=== PATIENT | female | born 1985 ===

== ENCOUNTER 2021-11-15 05:13 | Emergency (ER) | payer SELFPAY ==
[2021-11-15 05:22] VITALS: BP 119/64
[2021-11-15] MEDS ORDERED: ACETAMINOPHEN 325 MG TAB PO ONE (07:11)
== END 2021-11-15 09:30 | disposition left against medical advice (07) ==
LOC: ED 05:13
DX: R50.9 Fever, unspecified (principal); Z53.21 Procedure and treatment not carried out due to patient leaving prior to being seen by health care provider

== ENCOUNTER 2021-11-16 06:45 | Emergency (ER) | payer SELFPAY ==
[2021-11-16 07:15] VITALS: BP 108/76
[2021-11-16] MEDS ORDERED: IBUPROFEN 800 MG TAB PO ONE (08:09)
--- NOTE | 2021-11-16 08:18 | Emergency Department Report ---
- General Chief Complaint: Dyspnea/Respdistress Stated Complaint: SHORTNESS OF BREATH/COVID-19+ Source: patient Mode of arrival: Ambulatory Limitations: No Limitations - History of Present Illness Initial Comments: 35-year-old female presents to the ED complaining of generalized body ache, fever ,cough, sore throat x 1 day . Patient states that she took a COVID test yesterday. She states that she was tested positive. Patient was vaping in the ED. Patient denies any prior medication to arrival. Patient denies vaccination to covid vaccine. Patient denies any chest pain or shortness of breath. Roxana ent is alert and oriented x3. No acute distress noted. No ill appearance noted. MD Complaint: fever, cough, nasal congestion, other Onset/Timin -: days(s) Severity: mild Severity scale (0 -10): 4 Quality: aching Improves With: nothing Context: sick contacts Associated Symptoms: denies other symptoms - Related Data Previous Rx's Medication Instructions Recorded Last Taken Type Ibuprofen [Motrin] 800 mg PO Q8HR PRN 15 Days #30 11/16/21 Unknown Rx tablet Allergies Allergy/AdvReac Type Severity Reaction Status Date / Time azithromycin [From Zithromax] Allergy Rash Verified 11/15/21 07:11 ED Review of Systems ROS: Stated complaint: SHORTNESS OF BREATH/COVID-19+ Other details as noted in HPI Constitutional: denies: chills, fever Eyes: denies: eye pain, eye discharge, vision change ENT: denies: ear pain, throat pain Respiratory: cough. denies: shortness of breath, wheezing Cardiovascular: denies: chest pain, palpitations Endocrine: no symptoms reported Gastrointestinal: denies: abdominal pain, nausea, diarrhea Genitourinary: denies: urgency, dysuria, discharge Musculoskeletal: denies: back pain, joint swelling, arthralgia Skin: denies: rash, lesions Neurological: denies: headache, weakness, paresthesias Psychiatric: denies: anxiety, depression Hematological/Lymphatic: denies: easy bleeding, easy bruising ED Past Medical Hx - Past Medical History Previous Medical History?: Yes Additional medical history: Childbirth x 3 by - Surgical History Past Surgical History?: Yes Additional Surgical History: c section x3 - Social History Smoking Status: Never Smoker Substance Use Type: None - Medications Home Medications: Home Medications Medication Instructions Recorded Confirmed Last Taken Type Ibuprofen [Motrin] 800 mg PO Q8HR PRN 15 Days #30 11/16/21 Unknown Rx tablet ED Physical Exam - General Limitations: No Limitations General appearance: alert, in no apparent distress - Head Head exam: Present: atraumatic, normocephalic - Eye Eye exam: Present: normal appearance - ENT ENT exam: Present: mucous membranes moist - Neck Neck exam: Present: normal inspection - Respiratory Respiratory exam: Present: normal lung sounds bilaterally. Absent: respiratory distress - Cardiovascular Cardiovascular Exam: Present: regular rate, normal rhythm. Absent: systolic murmur, diastolic murmur, rubs, gallop - GI/Abdominal GI/Abdominal exam: Present: soft, normal bowel sounds - Extremities Exam Extremities exam: Present: normal inspection - Back Exam Back exam: Present: normal inspection - Neurological Exam Neurological exam: Present: alert, oriented X3 - Psychiatric Psychiatric exam: Present: normal affect, normal mood - Skin Skin exam: Present: warm, dry, intact, normal color. Absent: rash ED Course Vital Signs 11/16/21 07:12 Temperature 98.8 F Pulse Rate 83 Respiratory 20 Rate Blood Pressure 108/76 [Right] O2 Sat by Pulse 98 Oximetry ED Medical Decision Making - Medical Decision Making 35-year-old female presents to the ED complaining of generalized body ache, fever ,cough, sore throat x 1 day . Patient states that she took a COVID test yesterday. She states that she was tested positive. Patient was vaping in the ED. Patient denies any prior medication to arrival. Patient denies vaccination to covid vaccine. Patient denies any chest pain or shortness of breath at present . Patient is alert and oriented x3. No acute distress noted. No ill appearance noted. Physical examination is unremarkable. Rechecked the patient is resting quietly quietly and comfortable and feeling better. I discussed the results of diagnostic study, my clinical impression and the plan for further treatment with the patient. Patient agrees with plan and discharge at this present time. All question addressed. I have given the patient instruction regarding a diagnosis ,expectation ,follow- up and return precaution. I explained to the patient that emergent condition may arise and to return to the ED for new worsen and any new persisting condition. I have explained the importance of following up with the primary care physician or referral physician listed below has instructed. The patient verbalized under standing of discharge instruction. Critical care attestation.: If time is entered above; I have spent that time in minutes in the direct care of this critically ill patient, excluding procedure time. ED Disposition Clinical Impression: COVID-19 Disposition: 01 HOME / SELF CARE / HOMELESS Is pt being admited?: No Does the pt Need Aspirin: No Condition: Stable Instructions: COVID-19 Frequently Asked Questions, COVID-19: How to Protect Yourself and Others - CDC, Prevent the Spread of COVID-19 if You Are Sick - CDC Additional Instructions: Return to the ED for any worsening symptoms Stop vaping to help prevent shortness of breath Take medication as prescribed Prescriptions: Ibuprofen [Motrin] 800 mg PO Q8HR PRN 15 Days #30 tablet PRN Reason: Pain, Mild (1-3) Referrals: [facility] [Provider Group] - 3-5 Days Forms: Work/School Release Form(ED) Time of Disposition: 08:22
== END 2021-11-16 08:54 | disposition home or self-care (01) ==
LOC: ED 06:45
DX: R50.9 Fever, unspecified (principal); R05.9 Cough, unspecified; Z20.822 Contact with and (suspected) exposure to COVID-19; Z91.09 Other allergy status, other than to drugs and biological substances; Z79.899 Other long term (current) drug therapy
CPT/HCPCS: 99282